=== PATIENT | female | born 1965 | race Caucasian/White ===

== ENCOUNTER 2022-02-02 14:54 | Emergency (ER) | payer MEDICAID, SELFPAY ==
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
[2022-02-02 15:06] VITALS: PULSE 79; RESP 16; TEMP 37.2; O2SAT 98
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
[2022-02-02] MEDS: naproxen 500 mg Tablet PO (17:15)
[2022-02-02 17:19] VITALS: PULSE 62; RESP 14; O2SAT 98
== END 2022-02-02 17:23 | disposition home or self-care (01) ==
PROVIDERS: Emergency Provider Emergency Medicine
DX: S20.219A Contusion of unspecified front wall of thorax, initial encounter (principal); Y04.2XXA Assault by strike against or bumped into by another person, initial encounter
CPT/HCPCS: 71045; 99285